=== PATIENT | female | born 1960 | race Two or more races ===

== ENCOUNTER 2024-02-04 13:42 | Inpatient (IN) | payer MEDICARE, MEDICAID ==
[~2024-02-04] VITALS: Ht 167.6 cm; Wt 77.2 kg
--- NOTE | 2024-02-04 13:52 | ED.PDOC ---
HPI Comments HPI: Poor Historian. 63 y.o female presents to the ED via EMS for a chief complaint of chest pain and nausea, that started 3- 5 days ago. Patient called 911 3 days ago, was taken to the hospital, was admitted for cardiac observation but ended up leaving against medical advise. Patient states pain never went away, is constant, localized to the left side, non radiating, and worsens with deep inspiration and a non specific cough. Patient denies any fever, chills, leg swelling, or SOB. Patient recently diagnosed with kidney cancer and is awaiting chemotherapy to start. Patient reports allergies to NSAIDs s/p allergic reaction at this facility when admitted one week ago ( Toradol, Motrin, ASA) Initial vitals on scene: BP: 130/97 HR: 89 SPO2: 98% RA RR: 16 Blood glucose of 136 Vital Signs upon ED arrival: BP: 130/97 HR: 87 Temp: 98.5 F SPO2: 97% RA RR: 16 Past medical history: Kidney cancer Past surgical history: Denies REVIEW OF SYSTEMS: CONSTITUTIONAL: Denies acute: fever, diaphoresis, chills, generalized weakness. HEAD: Denies acute: headache, photophobia Eyes: Denies acute: Double vision, vision loss, eye pain, eye discharge. EARS: Denies acute: tinnitus, hearing loss, ear discharge, ear pain, THROAT: Denies acute: sore throat, swelling, difficulty swallowing , pain with swallowing, change in voice. NECK: Denies acute: neck pain, neck swelling, stiff neck. HEART: Denies acute : , palpitations, LUNGS: Denies acute: SOB, wheezing, cough, hemoptysis ABDOMEN: Denies acute: abdominal pain, Vomiting, diarrhea, melena , hematemesis, hematochezia SKIN: Denies acute: rash, redness, lesions, itchiness. EXTREMITIES: Denies acute: calf pain, numbness, tingling, weakness, denies pain in extremity. Denies acute: Low back pain. Neuro: Denies acute: focal neurological deficit, motor or sensory focal neurological deficit, tremors, seizure like activity, confusion, dizziness, change in mental status, loss of bowel or bladder function, cauda equina like symptoms. : Denies acute: dysuria, hematuria, flank pain, increase in urinary frequency. PSYCH: Denies acute: hallucination, suicidal ideation, homicidal ideation. FEMALE: Denies acute: abnormal vaginal bleeding, foul odor, unusual discharge. PHYSICAL EXAM: General: no acute distress, awake and alert. Head: normocephalic, atraumatic. Neck: supple, trachea is midline, no swelling. Throat: Normal phonation. Eyes:, no erythema, no purulent discharge, no proptosis, no icterus. Heart: regular rate, regular rhythm, no significant murmur appreciated. Lungs: no apparent respiratory distress, Able to speak in full sentences. No wheezing, no rhonchi, no crackles. No stridors Clear to auscultation bilaterally. Abdomen: non tender to palpation, non distended, soft, no guarding, no rebound, + bowel sounds. Neuro: Awake, Alert, oriented to name, self, situation, follows commands GCS=15. Speech is normal. Skin: no petechia, no purpura, no cyanosis, non-pale, not jaundice. Lower extremities: --no - Pitting edema no deformity, no focal swelling, no calf TTP. Makes eye contact. moves all four extremities. Face: no apparent facial droop. Ambulating in the ED independently. Chief Complaint: Chest Pain Time Seen by MD: 13:40 Reviewed Notes: Allergies Allergies: Coded Allergies: Aspirin (Verified Allergy, Unknown, 02/04/24) Ibuprofen (Verified Allergy, Unknown, 02/04/24) Ketorolac Tromethamine (Verified Allergy, Unknown, 02/04/24) Ondansetron (Verified Allergy, Unknown, 02/04/24) Information Source: Patient, Emergency Med Personnel Mode of Arrival: EMS Past Medical History PAST MEDICAL HISTORY: Cancer SPECIAL EFFECTS DESIGNER History: No Pertinent SPECIAL EFFECTS DESIGNER History Family History Family History: Reviewed,noncontributory to illness Social History Smoker: Non-Smoker Alcohol: Denies ETOH Use Drugs: Marijuana Lives In: Home Was a procedure done? Was a procedure done?: No CP Differential Dx Differential Diagnosis: N/A Differential Diagnosis: Aortic dissection, Chest Wall Pain, Costochondritis, Myocardial Infarction, Pericarditis, Other (Ddx include but not limitied to gastritis, musculoskeletal pain, radiculopathy, atypical chest pain, dissection, aneurysm, ACS, unstable angina, hiatal hernia, GERD, anxiety, costochondritis, PE, pneumothroax, neoplasm, cardiac ischemia, drug abuse, anemia.) X-Ray, Labs, Meds, VS Vital Signs Date Time Temp Pulse Resp B/P (MAP) Pulse Ox O2 Delivery O2 Flow Rate FiO2 02/04/24 16:45 73 02/04/24 14:39 68 02/04/24 13:45 98.5 87 16 130/97 (108) 97 02/04/24 13:42 80 Lab Test 02/04/24 19:09 02/04/24 15:30 02/04/24 14:00 Range/Units Troponin I High Sensitivity < 3 L < 3 L < 3 L </=34 ng/L White Blood Count 7.4 4.4-10.8 10^3/uL Red Blood Count 4.87 4.0-5.20 10^6/uL Hemoglobin 14.1 12.2-16.2 g/dL Hematocrit 43.0 36.0-46.0 % Mean Corpuscular Volume 88.2 80.0-100.0 fL Mean Corpuscular Hemoglobin 29.0 28.0-32.0 pg Mean Corpuscular Hemoglobin Concent 32.9 32.0-36.0 g/dL Red Cell Distribution Width 13.7 11.8-14.3 % Platelet Count 235 140-450 10^3/uL Mean Platelet Volume 8.6 6.9-10.8 fL Neutrophils (%) (Auto) 56.4 37.0-80.0 % Lymphocytes (%) (Auto) 33.3 10.0-50.0 % Monocytes (%) (Auto) 9.0 0.0-12.0 % Eosinophils (%) (Auto) 0.7 0.0-7.0 % Basophils (%) (Auto) 0.6 0.0-2.0 % Neutrophils # (Auto) 4.2 1.6-8.6 10 ^3/uL Lymphocytes # (Auto) 2.5 0.4-5.4 10 ^3/uL Monocytes # (Auto) 0.7 0-1.3 10 ^3/uL Eosinophils # (Auto) 0.1 0-0.8 10 ^3/uL Basophils # (Auto) 0 0-0.2 10 ^3/uL Nucleated Red Blood Cells 0.3 % Prothrombin Time 11.1 9.3-11.8 sec Prothrombin Time INR 1.05 0.9-1.15 Activated Partial Thromboplast Time 26.1 24.5-34.5 SEC Sodium Level 138 136-145 mmol/L Potassium Level 3.5 3.5-5.1 mmol/L Chloride Level 103 98-107 mmol/L Carbon Dioxide Level 25 20-31 mmol/L Anion Gap 10 5-15 Blood Urea Nitrogen 11 9-23 mg/dL Creatinine 1.25 H 0.550-1.02 mg/dL Glomerular Filtration Rate Calc 48 >90 mL/min BUN/Creatinine Ratio 8.8 L 10.0-20.0 Serum Glucose 149 H 74-106 mg/dL Calcium Level 9.9 8.7-10.4 mg/dL Magnesium Level 2.2 1.6-2.6 mg/dL Total Bilirubin 0.4 0.2-1.0 mg/dL Aspartate Amino Transferase (AST) 16 13-40 U/L Alanine Aminotransferase (ALT) 15 7-40 U/L Alkaline Phosphatase 93 46-116 U/L B-Type Natriuretic Peptide 3.09 0-100 pg/mL Total Protein 7.3 5.7-8.2 g/dL Albumin 4.7 3.2-4.8 g/dL [place] [id number] Ph: [phone] DIAGNOSTIC IMAGING Diagnostic Imaging Report : [id number] Signed PATIENT: JANAY HARTMAN ACCT: [id number] UNIT: [id number] : 1960 LOC: ER ROOM / BED: / AGE / SEX: 63 / F ADM STATUS: REG ER SERVICE [id number] ORDERING PHYSICIAN: KOKO MCCORMICK DO PROCEDURE(s): CXRP - CHEST PORTABLE REASON: CP ORDER NUMBER(s): [id number], ACCESSION NUMBER(s): [id number] EXAM: XY CHEST PORTABLE Indication: CP Technique: Single frontal view of the chest was obtained Comparison: None FINDINGS: Lines and Tubes: None Lungs: No focal consolidation. Pleura: No effusion. No pneumothorax. Cardiomediastinal contours: Unremarkable Bones: No acute osseous abnormality. IMPRESSION: No acute cardiopulmonary disease. ATED BY: KATYA MEDINA MD DICTATED DATE/TIME: 11/21/24 1423 SIGNED BY: KATYA MEDINA MD SIGNED DATE/TIME: 02/04/241422 CC: Time of 1ST Reevaluation: 13:45 Reevaluation 1ST: Unchanged Patient Education/Counseling: Diagnosis, Treatment Family Education/Counseling: No Family Present Comments Patient presented with the above HPI.--cardiac----workup was initiated. patient was found with the above mentioned diagnosis. Patient was given: nitroglycerin but no aspirin due to allergy Patient ED course and VS have been stabilized. Patient has been reassessed in the ED and remained in a stable condition. Pertinent incidental findings were discussed with the patient and/or family. Patient/family voices understanding and is agreeable with plan. Patient has been observed in the ED adequate length of time to insure improvement/stability. patient was admitted to the medicine team for further evaluation and treatment of their presentation. All the reports of any imaging studies that were ordered by myself were reviewed by myself. Departure 1 Departure Time of Disposition: 15:18 Impression: Primary Impression: Chest pain Disposition: ADMITTED INPATIENT Admit to: Tele Condition: Guarded Discharged With: Self Critical Care Note Critical Care Time?: No Heart Score Heart Score: Heart Score Response (Comments) Value History Slightly Suspicious 0 EKG Normal 0 Age 45-64 1 Risk Factors >3 or Hx ASHD 2 Troponin Normal limit 0 Total 3 I personally scribed for KOKO MCCORMICK DO ([email or web address]) on 02/04/24 at 13:52. Electronically submitted by Marian Arroyo ([employer]). I personally scribed for KOKO MCCORMIKC DO ([email or web address]) on 02/04/24 at 16:30. Electronically submitted by Marian Arroyo ([facility] KOKO MCCORMICK DO Feb 04, 2024 13:52
--- NOTE | 2024-02-04 14:24 | DVH ---
EXAM: XY CHEST PORTABLE Indication: CP Technique: Single frontal view of the chest was obtained Comparison: None FINDINGS: Lines and Tubes: None Lungs: No focal consolidation. Pleura: No effusion. No pneumothorax. Cardiomediastinal contours: Unremarkable Bones: No acute osseous abnormality. IMPRESSION: No acute cardiopulmonary disease.
[2024-02-04 14:25] LABS: Basophils # (auto) 0 10 ^3/uL (0-0.2); Basophils % (auto) 0.6 % (0.0-2.0); Eosinophils # (auto) 0.1 10 ^3/uL (0-0.8); Eosinophils % (auto) 0.7 % (0.0-7.0); Hemoglobin 14.1 g/dL (12.2-16.2); Lymphocytes # (auto) 2.5 10 ^3/uL (0.4-5.4); Lymphocytes % (auto) 33.3 % (10.0-50.0); Mean Corpuscular Hgb Conc. 32.9 g/dL (32.0-36.0); Mean Corpuscular Volume 88.2 fL (80.0-100.0); Monocytes # (auto) 0.7 10 ^3/uL (0-1.3); Neutrophils # (auto) 4.2 10 ^3/uL (1.6-8.6); Neutrophils % (auto) 56.4 % (37.0-80.0); Nucleated Red Blood Cells % 0.3 %; Platelet Count (auto) 235 10^3/uL (140-450); Red Blood Cells 4.87 10^6/uL (4.0-5.20); Red Cell Distribution Width 13.7 % (11.8-14.3); White Blood Cell 7.4 10^3/uL (4.4-10.8)
[2024-02-04 14:33] LABS: INR 1.05 (0.9-1.15); Partial Thromboplastin Time 26.1 SEC (24.5-34.5); Prothrombin Time 11.1 sec (9.3-11.8)
[2024-02-04 14:36] LABS: Alanine Aminotransferase 15 U/L (7-40); Albumin 4.7 g/dL (3.2-4.8); Alkaline Phosphatase 93 U/L (46-116); Anion Gap 10 (5-15); Aspartate Aminotransferase 16 U/L (13-40); BUN/Creatinine Ratio 8.8 (10.0-20.0); Bilirubin, Total 0.4 mg/dL (0.2-1.0); Blood Urea Nitrogen 11 mg/dL (9-23); Calcium 9.9 mg/dL (8.7-10.4); Carbon Dioxide 25 mmol/L (20-31); Chloride 103 mmol/L (98-107); Glucose 149 mg/dL (74-106); Magnesium 2.2 mg/dL (1.6-2.6); Potassium 3.5 mmol/L (3.5-5.1); Sodium 138 mmol/L (136-145); Total Protein 7.3 g/dL (5.7-8.2)
--- NOTE | 2024-02-04 19:11 | ECG ---
[facility] Test Date: 2024-02-04 Test Time: 14:39:09 Pat Name: JANAY HARTMAN Department: ED Room: [address] [place] [address] Gender: F Plodder Operator: BREANNA : 1960 Requested By: KOKO MCCORMICK Order Number: [id number] Reading MD: Jacobo Doan Measurements Intervals [place] Rate: 68 P: 92 [place]: 153 QRS: 80 QRSD: 88 T: 60 QT: 377 QTc: 401 Interpretive Statements Sinus rhythm Biatrial enlargement Left ventricular hypertrophy Electronically Signed On 02-05-2024 17:45:20 PST by Jacobo Doan Please click the below link to view image of tracing.
--- NOTE | 2024-02-04 19:11 | ECG ---
[facility] Test Date: 2024-02-04 Test Time: 13:39:18 Pat Name: JANAY HARTMAN Department: ER Room: [address] [place] [address] Gender: F Vp Product Management: JUVE : 1960 Requested By: KOKO MCCORMICK Order Number: [id number] Reading MD: Jacobo Doan Measurements Intervals [place] Rate: 80 P: 82 SD: 159 QRS: 58 QRSD: 87 T: 36 QT: 372 QTc: 430 Interpretive Statements Sinus rhythm Left atrial enlargement Left ventricular hypertrophy Electronically Signed On 02-05-2024 17:44:59 PST by Jacobo Doan Please click the below link to view image of tracing.
[2024-02-04] MEDS: NITROGLYCERIN 0.4 MG SL TAB SL ONE (20:30)
[2024-02-04] MEDS ORDERED: ASPirin 81 mg TAB PO ONE (21:15)
[2024-02-04] MEDS ORDERED: NITROGLYCERIN 0.4 MG SL TAB SL PRN (21:15)
[2024-02-04] MEDS ORDERED: ONDANSETRON HCL 4 MG/2 ML VIAL IV PRN (21:15)
[2024-02-04] MEDS ORDERED: MORPHINE SULFATE INJ 2 MG/ml SYRG IV PRN (21:15)
[2024-02-04] MEDS: POTASSIUM CHL 20MEQ/100ML 100 ML IV SCH (23:15)
[2024-02-04 23:33] LABS: Chloride 104 mmol/L (98-107); Potassium 3.8 mmol/L (3.5-5.1); Sodium 141 mmol/L (136-145)
[2024-02-04] MEDS: SODIUM CHLORIDE 0.9% 1,000 ML IV SCH (23:33)
[2024-02-04 23:35] LABS: Anion Gap 6 (5-15); Carbon Dioxide 31 mmol/L (20-31)
[2024-02-04 23:37] LABS: Calcium 10.2 mg/dL (8.7-10.4)
[2024-02-04 23:40] LABS: BUN/Creatinine Ratio 12.9 (10.0-20.0); Blood Urea Nitrogen 15 mg/dL (9-23); Glucose 122 mg/dL (74-106)
[2024-02-05 00:17] LABS: Erythrocyte Sedimentation Rate 9 mm/hr (0-20)
[2024-02-05] MEDS ORDERED: OXYCODONE W/ ACETAMINOPHEN 5/325MG TABLET ONE (00:53)
[2024-02-05] MEDS: OXYCODONE W/ ACETAMINOPHEN 5/325MG TABLET PO PRN (00:55)
[2024-02-05] MEDS: hydrALAZINE HCL 20 MG/ML VL IV ONE (01:15)
[2024-02-05] MEDS: LISINOPRIL 20 MG TAB PO ONE (03:47)
[2024-02-05] MEDS: hydroCHLOROthiazide 25 MG TAB PO ONE (03:48)
[2024-02-05] MEDS: PANTOPRAZOLE 40 MG TAB PO ONE (03:48)
--- NOTE | 2024-02-05 04:41 | DVHHPRES ---
History of Present Illness Resident Creating Document: GARY GALVAN RESIDENT Reason for Visit: Chest pain History of Present Illness 63-year-old female patient with past medical history significant for breast cancer (diagnosed in 2018, treated), chronic kidney disease stage 3, hypertension, biatrial enlargement, cholecystectomy and who presented with progressively worsening chest pain. The chest pain started several days ago and is described as constant and nonradiating and is located in the epigastric region with worsening symptoms upon movement. The pain is associated with nausea, vomiting (last episode 30 minutes ago) and a dry cough, but the patient denies diarrhea, shortness of breaths or fever. She reports palpitation significant emotional distress likely contributing to her symptoms. Additionally the patient reports abdominal pain localized to the epigastrium which exacerbates with movement. She denies alcohol consumption and smoking but reports occasional marijuana use last consumed 1 month ago. Is improved to mentioned that she was recently diagnosed with kidney cancer for which she is awaiting for chemotherapy and she also has a history of NSAIDs a Toradol allergies. Today her blood pressure reach until 199/78 for which she was given 1 dose of hydralazine 10 mg IV and also an acute kidney injury based on the creatinine levels on top of chronic kidney disease possibly due to hypertension or vomiting related dehydration. D-dimer was found to be elevated (5.63) thought corrected D-dimer values make pulmonary embolism unlikely. A decision on whether to proceed with a V/Q scan remains pending. Past Surgical History: None Family History: None Smoke: No ALCOHOL: none Drugs: Marijuana Lives: with Family Review of Systems Review of Systems Constitutional: Yes: Weakness, malaise No: Fever, Chills, Sweats Eyes: No: Pain, Vision change, Conjunctivae inflammation, Eyelid inflammation, Other, Redness ENT: No: Ear pain, Ear discharge, Nose pain, Nose discharge, Nose congestion, Mouth pain, Mouth swelling, Throat pain, Throat swelling, Other Respiratory: No Wheezing, Hemoptysis, Pleuritic Pain, Sputum, Wheezing, Other Cardiovascular: Yes, chest pain, palpitations , lightheadedness Gastrointestinal: Yes: Abdominal pain, vomiting No: Melena, Hematochezia, Other Neurological:; No: Weakness, Numbness, Incoordination, Change in speech, Confusion, Seizures Allergies: Coded Allergies: Aspirin (Verified Allergy, Unknown, 02/04/24) Ibuprofen (Verified Allergy, Unknown, 02/04/24) Ketorolac Tromethamine (Verified Allergy, Unknown, 02/04/24) Ondansetron (Verified Allergy, Unknown, 02/04/24) Medications Current Medications Medications Dose Ordered Sig/Mikel Route Start Time Stop Time Status Last Admin Dose Admin Sodium Chloride 1,000 ml @ 60 mls/hr [id number] IV 02/04/24 21:15 Ondansetron HCl 4 mg Q4HP PRN IV 02/04/24 21:15 Hold Acetaminophen 650 mg Q6HP PRN PO 02/04/24 21:15 Morphine Sulfate 2 mg Q4HPRN PRN IV 02/04/24 21:15 Nitroglycerin 0.4 mg Q5MINP PRN SL 02/04/24 21:15 Morphine Sulfate 2 mg Q30M PRN IV 02/04/24 21:15 Lidocaine 1 patch DAILY TOP 02/05/24 10:00 Oxycodone/ Acetaminophen 2 tab Q6HP PRN PO 02/05/24 01:00 02/05/24 01:03 2 TAB Lisinopril 20 mg DAILY PO 02/05/24 10:00 Pantoprazole Sodium 40 mg DAILY@0600 PO 02/05/24 06:00 Sucralfate 1 gm QIDACHS PO 02/05/24 07:00 Hydrochlorothiazide 25 mg DAILY PO 02/05/24 10:00 Atorvastatin Calcium 40 mg HS PO 02/05/24 22:00 Exam Vital Signs Vital Signs Date Time Temp Pulse Resp B/P (MAP) Pulse Ox O2 Delivery O2 Flow Rate FiO2 02/05/24 03:47 141/108 02/05/24 03:42 74 18 97 02/04/24 13:45 98.5 Exam Examination General Appearance: Alert, Oriented X3, Cooperative, No acute distress HEENT: EOMI Respiratory: Clear to auscultation, Normal air movement Cardiovascular: ?Regular rate, Normal S1, Normal S2 Abdominal: Normal bowel sounds Extremities: No cyanosis, No edema, Normal pulses, No tenderness/swelling Skin: No rashes, No breakdown Neuro: Normal gait, Normal speech, Strength at 5/5 X4 ext, Normal tone, Sensation intact, Cranial nerves 3-12 NL, Reflexes 2+ Psych/Mental Status: Mental status NL, Mood NL Labs/Xrays Labs Test 02/04/24 23:02 02/04/24 19:09 02/04/24 14:00 Range/Units Erythrocyte Sedimentation Rate 9 0-20 mm/hr D-Dimer, Quantitative 5.63 H 0.0-0.49 mg/L FEU Sodium Level 141 136-145 mmol/L Potassium Level 3.8 3.5-5.1 mmol/L Chloride Level 104 98-107 mmol/L Carbon Dioxide Level 31 20-31 mmol/L Anion Gap 6 5-15 Blood Urea Nitrogen 15 9-23 mg/dL Creatinine 1.16 H 0.550-1.02 mg/dL Glomerular Filtration Rate Calc 53 >90 mL/min BUN/Creatinine Ratio 12.9 10.0-20.0 Serum Glucose 122 H 74-106 mg/dL Calcium Level 10.2 8.7-10.4 mg/dL C-Reactive Protein High Sensitivity 1.10 H <1.0 mg/dL Vitamin D 25-Hydroxy 36.0 30.0-100 ng/mL Thyroid Stimulating Hormone (TSH) 1.71 0.55-4.78 uIU/mL Troponin I High Sensitivity < 3 L </=34 ng/L White Blood Count 7.4 4.4-10.8 10^3/uL Red Blood Count 4.87 4.0-5.20 10^6/uL Hemoglobin 14.1 12.2-16.2 g/dL Hematocrit 43.0 36.0-46.0 % Mean Corpuscular Volume 88.2 80.0-100.0 fL Mean Corpuscular Hemoglobin 29.0 28.0-32.0 pg Mean Corpuscular Hemoglobin Concent 32.9 32.0-36.0 g/dL Red Cell Distribution Width 13.7 11.8-14.3 % Platelet Count 235 140-450 10^3/uL Mean Platelet Volume 8.6 6.9-10.8 fL Neutrophils (%) (Auto) 56.4 37.0-80.0 % Lymphocytes (%) (Auto) 33.3 10.0-50.0 % Monocytes (%) (Auto) 9.0 0.0-12.0 % Eosinophils (%) (Auto) 0.7 0.0-7.0 % Basophils (%) (Auto) 0.6 0.0-2.0 % Neutrophils # (Auto) 4.2 1.6-8.6 10 ^3/uL Lymphocytes # (Auto) 2.5 0.4-5.4 10 ^3/uL Monocytes # (Auto) 0.7 0-1.3 10 ^3/uL Eosinophils # (Auto) 0.1 0-0.8 10 ^3/uL Basophils # (Auto) 0 0-0.2 10 ^3/uL Nucleated Red Blood Cells 0.3 % Prothrombin Time 11.1 9.3-11.8 sec Prothrombin Time INR 1.05 0.9-1.15 Activated Partial Thromboplast Time 26.1 24.5-34.5 SEC Magnesium Level 2.2 1.6-2.6 mg/dL Total Bilirubin 0.4 0.2-1.0 mg/dL Aspartate Amino Transferase (AST) 16 13-40 U/L Alanine Aminotransferase (ALT) 15 7-40 U/L Alkaline Phosphatase 93 46-116 U/L B-Type Natriuretic Peptide 3.09 0-100 pg/mL Total Protein 7.3 5.7-8.2 g/dL Albumin 4.7 3.2-4.8 g/dL Assessment/Plan Assessment/Plan #Chest pain likely multifactorial due to ?hypertensive urgency/emergency ?ACS ? pulmonary embolism -Sucralfate tab 1 g p.o. -Pantoprazole 40 mg p.o. daily --Oxycodone p.o. q.6 hours p.r.n. - consider V/Q scan -Nitroglycerin 0.4 mg once -Atorvastatin 40 mg p.o. #Hypertensive urgency/emergency -Systolic blood pressure 200 mmHg with symptoms of chest and abdominal pain we will suggest hypertensive emergency with end-organ damage -Hydralazine p.r.n. -Lisinopril 20 mg #Acute kidney injury on chronic kidney disease likely due to VMN -Likely precipitated by volume depletion from vomiting and or hypertensive nephropathy -Hydration with normal saline -Monitor potassium and magnesium levels #Rule out PE based on recent D-dimer elevation -corrected D-dimer values make PE unlikely -consider V/Q scan #Epigastric abdominal pain epigastric abdominal pain likely due to gastritis or peptic ulcer disease likely exacerbated by vomiting a recent stress -PPI prophylaxis #History of anxiety ? Bipolar disorder ? MDD -patient uses quetiapine and sertraline at home Case discussed with Dr. Ying Goals of care discussed with the patient for 36 minutes Code status: Full code Plan discussed with: Patient My Orders Orders - GARY GALVAN Procedure Category Date Status Time Admit ADMIT 02/04/24 Transmitted 21:13 Allergies JERSON 02/04/24 In Process 21:13 Code Status CODE 02/04/24 Transmitted 21:13 2 Gm Sodium Diet DIET 02/05/24 Transmitted Breakfast Sodium Chloride 0.9% PHA 02/04/24 In Process 21:15 Oxygen Per Hour RT 02/04/24 Transmitted 21:13 Ondansetron Hcl PHA 02/04/24 In Process (Zofran) 21:15 Complete Blood Count LAB 02/05/24 Logged 04:00 Cardiac DIET 02/05/24 Transmitted Diet-2gna,Lofat,Lochol Breakfast Echo 2d Mode Cardiac US 02/04/24 Logged DOP 21:13 Acetaminophen Tablet PHA 02/04/24 In Process (Tylenol Tablet) 21:15 Morphine Sulfate PHA 02/04/24 In Process Injection 21:15 Nitroglycerin PHA 02/04/24 In Process Sublingual (Ntrostat 21:15 Morphine Sulfate PHA 02/04/24 In Process Injection 21:15 Oxygen By Nasal RT 02/04/24 Transmitted Cannula 21:13 Stat Ekg For Chest [facility] 02/04/24 In Process Pain 21:13 Notify Md Of Changes [facility] 02/04/24 In Process From Base 21:13 Precinct Captain For [facility] 02/04/24 In Process 24 Hours 21:13 Emergency Dysrhythmia [facility] 02/04/24 In Process Protocol 21:13 Rhythm Strips Once [facility] 02/04/24 In Process Every Shift 21:13 Date of Service: Feb 04, 2024 Billing Provider: ELIE YING MD Common Visit Codes: [id number] INP/OBS CARE (HIGH) GARY GALVAN RESIDENT Feb 05, 2024 04:41 ELIE YING MD Feb 06, 2024 08:25
[2024-02-05] MEDS: MORPHINE SULFATE INJ 2 MG/ml SYRG IV PRN (05:48)
[2024-02-05] MEDS: PANTOPRAZOLE 40 MG TAB PO SCH (06:16)
[2024-02-05] MEDS: SUCRALFATE 1 GM TAB PO SCH (06:33)
[2024-02-05 06:53] VITALS: PULSE 81; RESP 18; O2SAT 99
[2024-02-05 07:01] LABS: Basophils # (auto) 0 10 ^3/uL (0-0.2); Basophils % (auto) 0.6 % (0.0-2.0); Eosinophils # (auto) 0.1 10 ^3/uL (0-0.8); Eosinophils % (auto) 1.4 % (0.0-7.0); Hematocrit 44.1 % (36.0-46.0); Hemoglobin 14.4 g/dL (12.2-16.2); Lymphocytes # (auto) 2.1 10 ^3/uL (0.4-5.4); Lymphocytes % (auto) 33.3 % (10.0-50.0); Mean Corpuscular Hemoglobin 29.1 pg (28.0-32.0); Mean Corpuscular Hgb Conc. 32.7 g/dL (32.0-36.0); Mean Corpuscular Volume 89.1 fL (80.0-100.0); Monocytes # (auto) 0.7 10 ^3/uL (0-1.3); Monocytes % (auto) 10.8 % (0.0-12.0); Neutrophils # (auto) 3.4 10 ^3/uL (1.6-8.6); Neutrophils % (auto) 53.9 % (37.0-80.0); Nucleated Red Blood Cells % 0.3 %; Platelet Count (auto) 205 10^3/uL (140-450); Red Blood Cells 4.95 10^6/uL (4.0-5.20); Red Cell Distribution Width 13.7 % (11.8-14.3); White Blood Cell 6.3 10^3/uL (4.4-10.8)
[2024-02-05 09:46] LABS: Urine Bacteria None Seen /hpf (None Seen)
[2024-02-05 09:48] VITALS: PULSE 95; RESP 16; O2SAT 99
[2024-02-05 09:57] LABS: Urine Blood Negative /uL (Negative); Urine Clarity Clear (Clear); Urine Color Yellow (Yellow); Urine Mucus FEW (None Seen); Urine Protein, UAD 1+ (Negative); Urine Specific Gravity 1.031 (1.001-1.035); Urine Urobilinogen 4 mg/dL (Negative); Urine WBC 3 /hpf (0 - 5)
[2024-02-05] MEDS: LIDOCAINE 5% TOPICAL PATCH TOP SCH (10:00)
[2024-02-05] MEDS: hydroCHLOROthiazide 25 MG TAB PO SCH (10:07)
[2024-02-05] MEDS: LISINOPRIL 20 MG TAB PO SCH (10:07)
[2024-02-05 10:28] LABS: Amphetamine Screen, Urine Neg (NEGATIVE); Barbiturate Scree,Urine Neg (NEGATIVE); Benzodiazephine Screen, Urine Neg (NEGATIVE); Cannabinoid Screen, Urine Pos (NEGATIVE); Cocaine Screen, Urine Neg (NEGATIVE); Opiate Scree,Urine Pos (NEGATIVE); Phencyclidine Screen, Urine Neg (NEGATIVE)
--- NOTE | 2024-02-05 11:56 | ECG ---
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
--- NOTE | 2024-02-05 15:30 | DVH ---
INDICATION: rule out kidney mass TECHNIQUE: Multiple real-time sonographic images of the kidneys and bladder were obtained. COMPARISON: None FINDINGS: The right kidney measures 11 cm in length, which is normal in size. There is normal echogenicity of t he right kidney. No hydronephrosis. 5 mm echogenic foci in the right kidney, which could represent a nonobstructing calculi The left kidney measures 10 cm in length, which is normal in size. There is normal echogenicity of th e left kidney. No hydronephrosis. No large intraluminal masses are seen in the bladder. Prior to voiding the bladder volume measures volume 32 cc. IMPRESSION: 1. 5 mm echogenic foci in the right kidney, which could represent a nonobstructing calculi
--- NOTE | 2024-02-05 16:45 | DVHPNRES ---
Progress Note Date Seen: Feb 05, 2024 Resident Creating Document: MADELEINE COVINGTON RESIDENT Has the PT tested + for MRSA If YES, has PT been informed?: No Medical Necessity Reason Pt with a Central, PICC or Fol: No Subjective Review of Systems 63-year-old female patient with past medical history significant for breast cancer (diagnosed in 2018, treated), chronic kidney disease stage 3, hypertension, cholecystectomy and who presented with progressively worsening chest pain. The chest pain started several days ago and is described as constant and radiating to the left shoulder with worsening symptoms upon movements . The pain is associated with nausea, vomiting (last episode 30 minutes ago) and a dry cough, but the patient denies diarrhea, shortness of breaths or fever. She reports palpitation significant emotional distress likely contributing to her symptoms. Additionally the patient reports abdominal pain localized to the epigastrium which exacerbates with movement. She denies alcohol consumption and smoking but reports occasional marijuana use last consumed 1 month ago. and she also has a history of NSAIDs a Toradol allergies. Today her blood pressure reach until 199/78 for which she was given 1 dose of hydralazine 10 mg IV and also an acute kidney injury based on the creatinine levels on top of chronic kidney disease possibly due to hypertension or vomiting related dehydration. Objective vital signs Vital Sign Date Time Temp Pulse Resp B/P (MAP) Pulse Ox O2 Delivery O2 Flow Rate FiO2 02/05/24 15:27 60 18 130/80 02/05/24 11:32 96 02/05/24 09:48 Room Air* 0 21 02/04/24 13:45 98.5 medications Current Medications Medications Dose Ordered Sig/Mikel Route Start Time Stop Time Status Last Admin Dose Admin Acetaminophen 650 mg Q6HP PRN PO 02/04/24 21:15 Morphine Sulfate 2 mg Q4HPRN PRN IV 02/04/24 21:15 02/05/24 14:43 2 MG Nitroglycerin 0.4 mg Q5MINP PRN SL 02/04/24 21:15 Morphine Sulfate 2 mg Q30M PRN IV 02/04/24 21:15 Lidocaine 1 patch DAILY TOP 02/05/24 10:00 Oxycodone/ Acetaminophen 2 tab Q6HP PRN PO 02/05/24 01:00 02/05/24 01:03 2 TAB Lisinopril 20 mg DAILY PO 02/05/24 10:00 02/05/24 10:07 20 MG Pantoprazole Sodium 40 mg DAILY@0600 PO 02/05/24 06:00 02/05/24 06:16 40 MG Sucralfate 1 gm QIDACHS PO 02/05/24 07:00 02/05/24 11:42 1 GM Hydrochlorothiazide 25 mg DAILY PO 02/05/24 10:00 02/05/24 10:07 25 MG Atorvastatin Calcium 40 mg HS PO 02/05/24 22:00 Metoclopramide HCl 5 mg Q8HR IV 02/05/24 22:00 Examination General Appearance: Alert, Oriented X3, Cooperative, No acute distress HEENT: EOMI Respiratory: Clear to auscultation, Normal air movement Chest: palpation of the breasts, no masses no axilary nodules Cardiovascular: ?Regular rate, Normal S1, Normal S2, pain at palpation of the left hemithorax, ultrasound at bedside didnt show constrictive pericarditis or pleural effusion Abdominal: Normal bowel sounds Extremities: No cyanosis, No edema, Normal pulses, No tenderness/swelling Skin: No rashes, No breakdown Neuro: Normal gait, Normal speech, Strength at 5/5 X4 ext, Normal tone, Sensation intact, Cranial nerves 3-12 NL, Reflexes 2+ Psych/Mental Status: Mental status NL, Mood NL laboratory and microbiology Laboratory Tests 02/05/24 06:35 02/04/24 23:02 Test 02/04/24 23:02 Range/Units Serum Glucose 122 H 74-106 mg/dL Problem List/Assessment/Plan Problem List/Assessment/Plan #Chest pain likely to 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 -Pantoprazole 40 mg p.o. daily --Oxycodone p.o. q.6 hours p.r.n. -Nitroglycerin 0.4 mg once -Atorvastatin 40 mg p.o. ECHO pending Negative troponins, no tachycardia, no acute hypoxia #Hypertensive urgency resolved -Lisinopril 20 mg HCTZ 25 mg #Acute kidney injury on chronic kidney disease likely due to VMN -Likely precipitated by volume depletion from vomiting and or hypertensive nephropathy -Hydration with normal saline -Monitor potassium and magnesium levels #History of anxiety ? Bipolar disorder ? MDD -patient uses quetiapine and sertraline at home Case discussed with Dr. Luis Goals of care discussed with the patient for 36 minutes Code status: Full code Plan discussed with: Patient, Other (rn) My Orders My Orders Orders - MADELEINE COVINGTON Procedure Category Date Status Time Kidney US 02/05/24 Resulted 14:06 Metoclopramide PHA 02/05/24 In Process Injection (Reglan 22:00 Date of Service: Feb 05, 2024 Billing Provider: MATEO LUIS MD Common Visit Codes: [id number] INP/OBS CARE(HIGH), PROCEDURE ONLY (Cardiac point of care ultrasound 06925) Coding Comment Comment Attending Attestation I saw and evaluated the patient. I reviewed the residents note and agree with findings and plan as documented in the residents note except as documented below. Point of care ultrasound done today and interpreted by me Cardiac: Trace pericardial effusion, grossly normal systolic function, IVC less than 2 cm with > 50% excursion on inspiration Lung: No B-lines, no pleural effusion MADELEINE COVINGTON RESIDENT Feb 05, 2024 16:45 MATEO LUIS MD Feb 05, 2024 21:11
[2024-02-05 17:24] VITALS: PULSE 76; RESP 18; O2SAT 95
[2024-02-05] MEDS ORDERED: HYDR-4072 PO (17:33)
[2024-02-05] MEDS ORDERED: LISI20TA56 PO (17:33)
[2024-02-05] MEDS ORDERED: PROM1SOL4 PO (17:33)
[2024-02-05] MEDS ORDERED: ROSU20TA14 PO (17:33)
[2024-02-05] MEDS ORDERED: OMEP1CAP70 PO (17:33)
[2024-02-05] MEDS ORDERED: CARI-578 PO (17:33)
[2024-02-05] MEDS ORDERED: HYDR25TA4 PO (17:33)
[2024-02-05] MEDS ORDERED: SERT-160 PO (17:33)
[2024-02-05] MEDS ORDERED: QUET300T74 PO (17:33)
[2024-02-05] MEDS ORDERED: CANA100T PO (17:33)
[2024-02-05] MEDS ORDERED: SUCR1TAB PO (17:33)
[2024-02-05 19:25] VITALS: RESP 16; O2SAT 99
[2024-02-05 20:36] VITALS: BP 163/51; PULSE 94; TEMP 97.6; O2SAT 95
[2024-02-05] MEDS: METOCLOPRAMIDE HCL 5MG/ml INJ 2ml VIAL IV SCH (21:08)
[2024-02-05] MEDS: ATORVASTATIN 20 MG TAB PO SCH (21:09)
[2024-02-05 22:50] VITALS: PULSE 76; RESP 18; O2SAT 95
[2024-02-06] VITALS (7 sets, daily range): BP systolic 121–159; BP diastolic 59–74; PULSE 67–90; RESP 12–20; TEMP 97.5–98.5; O2SAT 96–98
--- NOTE | 2024-02-06 02:36 | DVHSR ---
APPROVED REPORT EXAM: Two-dimensional and M-mode echocardiogram with Doppler and color Doppler. Blood Pressure: 135/67 mmHg INDICATION Chest Pain RISK FACTORS Height: 64, Weight: 170 DIMENSIONS LVDd3.4 (3.8-5.7cm)LA (2D)3.3 (1.9-4.0cm)Aortic Root3.2 (2.0-3.7cm) LVDs2.3 (2.5-4.0cm)LA (MM) (1.9-4.0cm)Aortic Cusp Exc1.7 (1.5-2.0cm) EF (%) 60.0 (55-70%)Rt. Atrium3.1 (1.9-4.0cm)Asc. Aorta cm Mitral Valve MitralMitral Stenosis E wave0.48m/sMV Mean GR.mmHg A wave0.63m/sMV Peak GR.mmHg E/A ratio0.82D MVAcm2 DECEL [id number] 1/2 Eofw19ec IVRTmsDop MVA3.68cm2 Aortic Valve Aortic ValveAortic Stenosis V10.80m/Gregory Mean GR.3mmHg V21.11m/Gregory Peak GR.5mmHg LVOT Diameter1.8 (1.8-2.4cm)Doppler AVA1.83cm2 Pulmonic Valve V20.82m/s Other Information Technically limited study due to body habitus. Conclusion LV EJECTION FRACTION IS 65% NORMAL VALVES NO EFFUSION NORMAL RV FUNCTION
[2024-02-06 06:55] LABS: Basophils # (auto) 0 10 ^3/uL (0-0.2); Basophils % (auto) 1.1 % (0.0-2.0); Eosinophils # (auto) 0.1 10 ^3/uL (0-0.8); Eosinophils % (auto) 2.1 % (0.0-7.0); Hematocrit 44.2 % (36.0-46.0); Hemoglobin 14.4 g/dL (12.2-16.2); Lymphocytes # (auto) 2.1 10 ^3/uL (0.4-5.4); Lymphocytes % (auto) 44.9 % (10.0-50.0); Mean Corpuscular Hgb Conc. 32.7 g/dL (32.0-36.0); Mean Corpuscular Volume 88.8 fL (80.0-100.0); Monocytes # (auto) 0.5 10 ^3/uL (0-1.3); Monocytes % (auto) 11.9 % (0.0-12.0); Neutrophils # (auto) 1.8 10 ^3/uL (1.6-8.6); Nucleated Red Blood Cells % 0.1 %; Platelet Count (auto) 231 10^3/uL (140-450); Red Blood Cells 4.97 10^6/uL (4.0-5.20); Red Cell Distribution Width 13.5 % (11.8-14.3); White Blood Cell 4.6 10^3/uL (4.4-10.8)
[2024-02-06 06:58] LABS: Alanine Aminotransferase 15 U/L (7-40); Albumin 4.9 g/dL (3.2-4.8); Alkaline Phosphatase 90 U/L (46-116); Anion Gap 10 (5-15); Aspartate Aminotransferase 14 U/L (13-40); BUN/Creatinine Ratio 9.2 (10.0-20.0); Bilirubin, Total 0.6 mg/dL (0.2-1.0); Blood Urea Nitrogen 8 mg/dL (9-23); Calcium 10.7 mg/dL (8.7-10.4); Carbon Dioxide 25 mmol/L (20-31); Chloride 104 mmol/L (98-107); Glucose 105 mg/dL (74-106); Potassium 3.5 mmol/L (3.5-5.1); Sodium 139 mmol/L (136-145); Total Protein 7.4 g/dL (5.7-8.2)
[2024-02-06] MEDS ORDERED: [UNRECOGNIZED DRUG - CODE] EX (09:36)
[2024-02-06] MEDS ORDERED: FOSF3POW PO (11:40)
--- NOTE | 2024-02-06 12:27 | DVHDSRES ---
Discharge Summary Date of Admission Resident Creating Document: GARFIELD OCONNELL RESIDENT Feb 04, 2024 at 21:13 Date of Discharge: Feb 06, 2024 Labs/Diagnostic Data: Laboratory Results Test 02/06/24 05:45 02/05/24 09:41 02/04/24 23:02 02/04/24 19:09 White Blood Count 4.6 10^3/uL (4.4-10.8) Red Blood Count 4.97 10^6/uL (4.0-5.20) Hemoglobin 14.4 g/dL (12.2-16.2) Hematocrit 44.2 % (36.0-46.0) Mean Corpuscular Volume 88.8 fL (80.0-100.0) Mean Corpuscular Hemoglobin 29.0 pg (28.0-32.0) Mean Corpuscular Hemoglobin Concent 32.7 g/dL (32.0-36.0) Red Cell Distribution Width 13.5 % (11.8-14.3) Platelet Count 231 10^3/uL (140-450) Mean Platelet Volume 8.5 fL (6.9-10.8) Neutrophils (%) (Auto) 40.0 % (37.0-80.0) Lymphocytes (%) (Auto) 44.9 % (10.0-50.0) Monocytes (%) (Auto) 11.9 % (0.0-12.0) Eosinophils (%) (Auto) 2.1 % (0.0-7.0) Basophils (%) (Auto) 1.1 % (0.0-2.0) Neutrophils # (Auto) 1.8 10 ^3/uL (1.6-8.6) Lymphocytes # (Auto) 2.1 10 ^3/uL (0.4-5.4) Monocytes # (Auto) 0.5 10 ^3/uL (0-1.3) Eosinophils # (Auto) 0.1 10 ^3/uL (0-0.8) Basophils # (Auto) 0 10 ^3/uL (0-0.2) Nucleated Red Blood Cells 0.1 % Sodium Level 139 mmol/L (136-145) Potassium Level 3.5 mmol/L (3.5-5.1) Chloride Level 104 mmol/L (98-107) Carbon Dioxide Level 25 mmol/L (20-31) Anion Gap 10 (5-15) Blood Urea Nitrogen 8 mg/dL (9-23) Creatinine 0.87 mg/dL (0.550-1.02) Glomerular Filtration Rate Calc 74 mL/min (>90) BUN/Creatinine Ratio 9.2 (10.0-20.0) Serum Glucose 105 mg/dL (74-106) Calcium Level 10.7 mg/dL (8.7-10.4) Total Bilirubin 0.6 mg/dL (0.2-1.0) Aspartate Amino Transferase (AST) 14 U/L (13-40) Alanine Aminotransferase (ALT) 15 U/L (7-40) Alkaline Phosphatase 90 U/L (46-116) Total Protein 7.4 g/dL (5.7-8.2) Albumin 4.9 g/dL (3.2-4.8) Urine Color Yellow (Yellow) Urine Clarity Clear (Clear) Urine pH 6.0 (5.0-9.0) Urine Specific [place] 1.031 (1.001-1.035) Urine Protein 1+ (Negative) Urine Ketones Trace (Negative) Urine Blood Negative /uL (Negative) Urine Nitrite Negative (Negative) Urine Bilirubin Negative (Negative) Urine Urobilinogen 4 mg/dL (Negative) Urine Leukocyte Esterase Negative /uL (Negative) Urine RBC 2 /hpf (0 - 4) Urine WBC 3 /hpf (0 - 5) Urine Squamous Epithelial Cells Few /hpf (<5) Urine Bacteria None seen /hpf (None Seen) Urine Mucus Few (None Seen) Urine Glucose 4+ mg/dL (Normal) Urine Opiates Screen Pos (NEGATIVE) Urine Fentanyl Screen Neg (NEGATIVE) Urine Barbiturates Screen Neg (NEGATIVE) Urine Phencyclidine Screen Neg (NEGATIVE) Urine Amphetamines Screen Neg (NEGATIVE) Urine Benzodiazepines Screen Neg (NEGATIVE) Urine Cocaine Screen Neg (NEGATIVE) Urine Cannabinoids Screen Pos (NEGATIVE) Erythrocyte Sedimentation Rate 9 mm/hr (0-20) D-Dimer, Quantitative 5.63 mg/L FEU (0.0-0.49) C-Reactive Protein High Sensitivity 1.10 mg/dL (<1.0) Vitamin D 25-Hydroxy 36.0 ng/mL (30.0-100) Thyroid Stimulating Hormone (TSH) 1.71 uIU/mL (0.55-4.78) Troponin I High Sensitivity < 3 ng/L (</=34) Test 02/04/24 14:00 Prothrombin Time 11.1 sec (9.3-11.8) Prothrombin Time INR 1.05 (0.9-1.15) Activated Partial Thromboplast Time 26.1 SEC (24.5-34.5) Magnesium Level 2.2 mg/dL (1.6-2.6) B-Type Natriuretic Peptide 3.09 pg/mL (0-100) Other Laboratory Tests 02/06/24 05:45 Brief Hx & Hospital Course: Brooke Azul is a 63-year-old female patient who presents to ED with progressive stabbing/sharp, localized chest pain on site where she received radiotherapy for breast cancer (anterior axillary line in 3rd intercostal space), radiates towards shoulder, is aggravated when moving her arms, on palpation and when breathing in, which started one week before her admission, associated with nausea, vomiting and dry cough. Patient reports recent diagnosis of UTI, which she partially completed antibiotic treatment. Denies palpitation, syncope, fever, chills, dyspnea, diarrhea, constipation, bleeding, dysuria, sick contacts, recent travel and motor or sensitive deficits. Past medical history: Hypertension, CKD stage 3 a, Breast cancer (diagnosed in 2018, treated with lumpectomy, radiotherapy and hormonal therapy which lasted five years), anxiety Surgical history: Cholecystectomy and Family history: Noncontributory Social history: She lives alone in [place]. Denies current tobacco, alcohol and other drug abuse. Allergies: Aspirin, ibuprofen, ketorolac, tromethamine, ondansetron Home medication: Canagliflozin 100 mg p.o. daily, carisoprodol 350 mg p.o. b.i.d., diclofenac p.r.n., hydrochlorothiazide 25 mg p.o. daily, hydrocodone acetaminophen p.r.n., lisinopril 20 mg p.o. daily, promethazine p.r.n., rosuvastatin 20 mg p.o. daily, quetiapine, sertraline Brief hospital course: Musculoskeletal chest pain secondary to radiation site on left hemithorax and probable GERD, ruling out on admission acute coronary syndrome and pulmonary embolism (EKG, troponin, echocardiogram within normal limits), indicating diclofenac gel. Completed ultrasound of kidneys which showed 5 mm right kidney stone which is nonobstructive. Due to recent history of UTI, indicated antibiotic to complete treatment (indicated fosfomycin). Patient hemodynamically stable, asymptomatic, in condition to be discharged home. Was granted under optimal medical therapy (diclofenac gel), gave her advice on healthy lifestyle habits, and follow-up as outpatient with PCP, sports commentator and oncologist (latter per patients needs). 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 Barrios, patient and nurses Physical examination Patient lying in bed, in no acute distress General: Lucid, afebrile, mucosae are moist Cardiovascular: Normal S1 and S2. No murmurs, gallops or rubs Respiratory: Normal ventilation mechanics. Clear lung sounds on auscultation Abdomen: Soft, nontender, no organomegaly, normal bowel sounds MSK/skin: Mobilizes 4 limbs. Skin is dry and warm Neurological: Oriented in 3 spheres. No motor no sensitive deficits. Pupils are isocoric and reactive Operations or Procedures EXAM: XY CHEST PORTABLE Indication: CP Technique: Single frontal view of the chest was obtained Comparison: None FINDINGS: Lines and Tubes: None Lungs: No focal consolidation. Pleura: No effusion. No pneumothorax. Cardiomediastinal contours: Unremarkable Bones: No acute osseous abnormality. IMPRESSION: No acute cardiopulmonary disease. ATED BY: KATYA MEDINA MD DICTATED DATE/TIME: 02/04/24 1423 INDICATION: rule out kidney mass TECHNIQUE: Multiple real-time sonographic images of the kidneys and bladder were obtained. COMPARISON: None FINDINGS: The right kidney measures 11 cm in length, which is normal in size. There is normal echogenicity of the right kidney. No hydronephrosis. 5 mm echogenic foci in the right kidney, which could represent a nonobstructing calculi The left kidney measures 10 cm in length, which is normal in size. There is normal echogenicity of the left kidney. No hydronephrosis. No large intraluminal masses are seen in the bladder. Prior to voiding the bladder volume measures volume 32 cc. IMPRESSION: 1. 5 mm echogenic foci in the right kidney, which could represent a nonobstructing calculi ATED BY: JOANA ZELAYA MD DICTATED DATE/TIME: 02/05/24 4755 EXAM: Two-dimensional and M-mode echocardiogram with Doppler and color Doppler. Blood Pressure: 135/67 mmHg INDICATION Chest Pain RISK FACTORS Height: 64, Weight: 170 DIMENSIONS LVDd 3.4 (3.8-5.7cm) LA (2D) 3.3 (1.9-4.0cm) Aortic Root 3.2 (2.0- 3.7cm) LVDs 2.3 (2.5-4.0cm) LA (MM) (1.9-4.0cm) Aortic Cusp Exc 1.7 (1.5- 2.0cm) EF (%) 60.0 (55-70%) Rt. Atrium 3.1 (1.9-4.0cm) Asc. Aorta cm Mitral Valve Mitral Mitral Stenosis E wave 0.48m/s MV Mean GR. mmHg A wave 0.63m/s MV Peak GR. mmHg E/A ratio 0.8 2D MVA cm2 DECEL Time 234ms PRESS 1/2 Time 60ms IVRT ms Dop MVA 3.68cm2 Aortic Valve Aortic Valve Aortic Stenosis V1 0.80m/s AO Mean GR. 3mmHg V2 1.11m/s AO Peak GR. 5mmHg LVOT Diameter 1.8 (1.8-2.4cm) Doppler TOMASZ 1.83cm2 Pulmonic Valve V2 0.82m/s Other Information Technically limited study due to body habitus. 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 #ACS ruled out #PE ruled out #Possible GERD #Hypertensive urgency resolved #Acute kidney injury hemodynamically mediated, on chronic kidney disease likely due to VMN #History of anxiety Discharge Disposition: Home SNF Discharge Will this Physician continue t: No Discharge Instruct/Medications Diet: See Comment Activity: No Restrictions, As Tolerated Follow Up/Referral: urology nephrology for CKD Medications: tylenol as needed diclofenac gel three times a day Discharge Statement: "Patient was advised to return to the ER or call 911 if any headaches, dizziness, shortness of breath, chest pain, abdominal pain, bleeding, fevers, or worsening of medical condition. Patient was counseled about treatment plan, medications, possible side effects, patientverbalized understanding. All questions were answered to the best of my ability. This discharge took greater then 30 minutes in planning, reviewing documentation, counseling the patient, and discussing with other team members." ASSESSMENT ASSESSMENT Assessment musculoskeletal chest pain hx of breast CA ckd 3a Date of Service: Feb 06, 2024 Billing Provider: MATEO BARRIOS MD Common Visit Codes: [id number]/[id number] DISCH DAY >30min GARFIELD OCONNELL RESIDENT Feb 06, 2024 12:27 MATEO BARRIOS MD Feb 06, 2024 22:02
[2024-02-06] MEDS: ACETAMINOPHEN 325 MG TAB PO PRN (12:48)
[2024-02-06] MEDS: cefTRIAXone 1GM/50ML D5W 50 ML IV ONE (14:07)
== END 2024-02-06 17:35 | disposition home or self-care (01) | DRG 391 ==
LOC: ER 13:42 → EDBD 13:42 → TELE 21:13 → TELE-E-ADS 02-05 22:47
PROVIDERS: ADMIT Student in an Organized Health Care Education/Training Program; ATTEND Emergency Medicine
DX: K21.9 Gastro-esophageal reflux disease without esophagitis (principal); N17.0 Acute kidney failure with tubular necrosis; I16.0 Hypertensive urgency; F12.90 Cannabis use, unspecified, uncomplicated; E11.22 Type 2 diabetes mellitus with diabetic chronic kidney disease; N18.31 Chronic kidney disease, stage 3a; I12.9 Hypertensive chronic kidney disease with stage 1 through stage 4 chronic kidney disease, or unspecified chronic kidney disease; F41.9 Anxiety disorder, unspecified; Z85.528 Personal history of other malignant neoplasm of kidney; Z90.49 Acquired absence of other specified parts of digestive tract; Z98.891 History of uterine scar from previous surgery; Z85.3 Personal history of malignant neoplasm of breast
CPT/HCPCS: 36415; 71045; 76775; 80048; 80053; 80307; 81001; 82306; 83735; 83880; 84443; 84484; 85025; 85379; 85610; 85652; 85730; 86141; 93005; 93306; G0378